=== PATIENT | female | born 1985 | race Asian ===

== ENCOUNTER 2020-08-04 12:27 | Emergency (ER) | payer OTHER, SELFPAY ==
[2020-08-04] MEDS ORDERED: Famotidine/PF 20 mg/2ml Vial ONE (12:51)
[2020-08-04] MEDS ORDERED: predniSONE 20 MG TAB ONE (12:51)
== END 2020-08-04 14:20 | disposition home or self-care (01) ==
LOC: CSHERS 12:27
DX: O99.891 Other specified diseases and conditions complicating pregnancy (principal); T78.40XA Allergy, unspecified, initial encounter; Z3A.13 13 weeks gestation of pregnancy
CPT/HCPCS: 93005; J7512; S0028